=== PATIENT | male | born 2000 | race African-American/Black ===

== ENCOUNTER 2020-09-13 22:50 | Emergency (ER) | payer OTHER ==
[2020-09-14 00:37] LABS: Acetaminophen Less than 6.0 mcg/mL (10.0-30.0); Alcohol Less than 10 mg/dL (Less than 10); Carbamazepine-Tegretol 10.7 ug/mL (4.0-12.0); Salicylate Less than 8.0 mg/dL (15.0-30.0)
== END 2020-09-14 01:00 ==
LOC: ERS 22:50 → EEVIPCON 22:50 → ERS 09-14 01:00
DX: T43.222A Poisoning by selective serotonin reuptake inhibitors, intentional self-harm, initial encounter (principal); T42.1X2A Poisoning by iminostilbenes, intentional self-harm, initial encounter; T18.2XXA Foreign body in stomach, initial encounter; X58.XXXA Exposure to other specified factors, initial encounter
CPT/HCPCS: 36415; 74018; 80156; 80307; 99284